=== PATIENT | male | born 1955 | race African-American/Black ===

== ENCOUNTER 2020-11-28 08:04 | Day surgery (SDC) | payer OTHER ==
[~2020-11-28 08:04] MED LIST: Lactated Ringers 1,000 ML IV SCH
--- NOTE | 2020-11-28 08:40 | PCM.PREANE ---
Preanesthetic Assessment - Procedure Proposed Procedure: Colonoscopy - Anesthesia/Transfusion/Family Hx Anesthesia History: No Prior Anesthesia Transfusion History: No Prior Transfusion(s) - Review of Systems General: No Symptoms Pulmonary: No Symptoms Cardiovascular: No Symptoms Gastrointestinal: No Symptoms Neurological: No Symptoms Other: Reports: None - Physical Assessment NPO Status Date: 11/26/20 NPO Status Time: 18:00 Vital Signs: Last Vital Signs Temp 97.0 F 11/28/20 08:15 Pulse 68 11/28/20 08:15 Resp 16 11/28/20 08:15 BP 146/95 H 11/28/20 08:15 Pulse Ox 100 11/28/20 08:15 Height: 5 ft 8 in Weight: 84.822 kg ASA Class: 1 Mental Status: Alert & Oriented x3 Airway Class: Mallampati = 1 Dentition: Reports: Normal Dentition Thyro-Mental Finger Breadths: 3 Mouth Opening Finger Breadths: 3 ROM/Head Extension: Full Lungs: Clear to Auscultation, Normal Respiratory Effort Cardiovascular: Regular Rate, Regular Rhythm - Allergies Allergies/Adverse Reactions: Allergies Allergy/AdvReac Type Severity Reaction Status Date / Time No Known Allergies Allergy Verified 11/25/20 07:18 - Acknowledgements Anesthesia Type Planned: General Anesthesia Pt an Appropriate Candidate for the Planned Anesthesia: Yes Alternatives and Risks of Anesthesia Discussed w Pt/Guardian: Yes Pt/Guardian Understands and Agrees with Anesthesia Plan: Yes PreAnesthesia Questionnaire - Past Health History Medical/Surgical History: Denies Medical/Surgical History - Past Surgical History Head Surgeries/Procedures: Reports: None - SUBSTANCE USE Tobacco Use Status *Q: Never Tobacco User - HOME MEDS Home Medications: Home Meds . [No Known Home Meds] 11/25/20 [History] - CURRENT (IN HOUSE) MEDS Current Meds: Current Medications Lactated Ringer's (Ringers, Lactated) 1,000 mls @ 125 mls/hr IV [facility] Last Admin: 11/28/20 08:23 Dose: 125 mls/hr Documented by:
[2020-11-28] MEDS ORDERED: Propofol 200 MG/20 ML SDV ONE ×2 (09:12→09:13)
[2020-11-28] MEDS ORDERED: Midazolam 1 MG/ML 2 ML SDV ONE (09:13)
[2020-11-28] MEDS ORDERED: fentaNYL 100 MCG/2 ML SDV ONE (09:13)
[2020-11-28] MEDS ORDERED: Lactated Ringers 1,000 ML IV SCH (10:30)
--- NOTE | 2020-11-28 10:30 | PCM.OPNOTE ---
- General Post-Op/Procedure Note Date of Surgery/Procedure: 11/28/20 Operative Procedure(s): Colonoscopy with snare rectal polypectomy and cold ascending and descending colon polypectomies. Pre Op Diagnosis: Desire for colorectal cancer screening Post-Op Diagnosis: Rectal polyp. Ascending colon polyp. Descending colon polyp. Anesthesia Technique: MAC (ASA I) Primary Surgeon: Ralph Sherman Condition: Good Free Text/Narrative:: DICTATION [id number] CPT CODE [id number]
--- NOTE | 2020-11-28 10:34 | PCM.POSTAN ---
POST ANESTHESIA ASSESSMENT - MENTAL STATUS Mental Status: Somnolent - VITAL SIGNS Vital Signs: Last Vital Signs Temp 97.0 F 11/28/20 08:15 Pulse 68 11/28/20 08:15 Resp 16 11/28/20 08:15 BP 146/95 H 11/28/20 08:15 Pulse Ox 100 11/28/20 08:15 - RESPIRATORY Respiratory Status: Respiratory Rate WNL, Airway Patent, O2 Saturation Stable - CARDIOVASCULAR CV Status: Pulse Rate WNL, Blood Pressure Stable - GASTROINTESTINAL GI Status: No Symptoms - PAIN Free Text/Narrative:: Resting comfortably - POST OP HYDRATION Hydration Status: Adequate & Stable
--- NOTE | 2020-11-28 10:50 | PCM48HPAN ---
Post Anesthesia Note - EVALUATION WITHIN 48HRS OF ANESTHETIC Vital Signs in Normal Range: Yes Patient Participated in Evaluation: Yes Respiratory Function Stable: Yes Airway Patent: Yes Cardiovascular Function Stable: Yes Hydration Status Stable: Yes Pain Control Satisfactory: Yes Nausea and Vomiting Control Satisfactory: Yes Mental Status Recovered: Yes Vital Signs: Last Vital Signs Temp 97.0 F 11/28/20 08:15 Pulse 68 11/28/20 08:15 Resp 16 11/28/20 08:15 BP 146/95 H 11/28/20 08:15 Pulse Ox 100 11/28/20 08:15 - COMMENTS/OBSERVATIONS Free Text/Narrative:: Pt doing well post-op. VSS. No apparent anesthetic complications. Dr. Dexter Brand
--- NOTE | 2020-11-28 14:03 | OR ---
SURGEON: Ralph Sherman M.D. DATE OF PROCEDURE: 11/28/2020 OPERATION PERFORMED: Colonoscopy with snare rectal polypectomy and cold ascending colon and descending colon polypectomies. ANESTHESIA: MAC. ASA CLASSIFICATION: I. PREOPERATIVE DIAGNOSIS: Desire for colorectal cancer screening. POSTOPERATIVE DIAGNOSES: 1. Large rectal polyp. 2. Ascending colon and descending colon polyps. DESCRIPTION OF PROCEDURE: The patient was taken to the endoscopy room and positioned on the endoscopy table in the left lateral decubitus position. Time-out was called for appropriate identification of the patient and procedure. Monitored anesthesia care was provided. The colonoscope was inserted into the rectum and advanced with minimal difficulty to the cecum. The cecum was identified by internal landmarks and external pressure. The colonoscope was retroflexed to visualize the ascending colon from below, then straightened, and slowly withdrawn. One polyp was encountered in the ascending colon and removed with cold biopsy forceps. The remainder of the ascending colon, hepatic flexure, transverse colon, and splenic flexure showed no tumors, polyps, diverticula, or angiodysplastic changes. A second polyp was encountered in the descending colon and removed with cold biopsy forceps. No polyps were encountered in the sigmoid colon and there was no evidence of diverticular disease. The colonoscope was then withdrawn to the proximal rectum where a larger polyp was encountered. This was removed with snare electrocautery and recovered. There was no bleeding from the polypectomy site. Once the colonoscope was withdrawn to the distal rectum, it was retroflexed to visualize the anal orifice from above. Again, no tumors or polyps were seen in the distal rectum and there were no acute hemorrhoidal changes. The colonoscope was then straightened, the rectum aspirated, and the colonoscope removed. The patient tolerated the procedure well and was taken to recovery room in stable condition. NIGEL / VIGNESH /[id number]
== END 2020-11-28 11:15 | disposition home or self-care (01) ==
LOC: MW.SDS 08:04
PROVIDERS: ATTEND Surgery
DX: Z12.11 Encounter for screening for malignant neoplasm of colon (principal); D12.2 Benign neoplasm of ascending colon; D12.4 Benign neoplasm of descending colon; D12.8 Benign neoplasm of rectum
CPT/HCPCS: 45380; 45385; 88305; J2250; J2704; J3010; J7120; 00812